=== PATIENT | female | born 1965 | race Caucasian/White ===

== ENCOUNTER 2017-09-18 16:18 | Emergency (ER) | payer OTHER ==
[~2017-09-18] VITALS: Ht 154.9 cm; Wt 68.5 kg
--- NOTE | 2017-09-18 18:38 | Diagnostic Imaging Report ---
PROCEDURE:X-RAY RIGHT KNEE, THREE OR MORE VIEWS COMPARISON:None. INDICATIONS:FELL HERD POP FINDINGS: Normal mineralization. No acute, displaced fracture or dislocation. No lytic or blastic lesions. Mild tricompartmental degenerative joint disease. Minimal suprapatellar effusion. CONCLUSION: Minimal suprapatellar effusion. No acute displaced fracture or dislocation. Omero Samaniego M.D. Dictated by: Omero Samaniego M.D. on 09/18/2017 at 18:42 Electronically approved by: Omero Samaniego M.D. on 09/18/2017 at 18:43
== END 2017-09-18 19:41 | disposition home or self-care (01) ==
LOC: ER 16:18
DX: S83.411A Sprain of medial collateral ligament of right knee, initial encounter (principal); X50.1XXA Overexertion from prolonged static or awkward postures, initial encounter; Y92.008 Other place in unspecified non-institutional (private) residence as the place of occurrence of the external cause; M79.642 Pain in left hand; M79.641 Pain in right hand; E11.9 Type 2 diabetes mellitus without complications
CPT/HCPCS: 99283

== ENCOUNTER 2017-12-05 10:06 | Emergency (ER) | payer OTHER ==
[~2017-12-05] VITALS: Ht 154.9 cm; Wt 68.5 kg
[2017-12-05] MEDS ORDERED: CEPHALEXIN500 MG PO (10:25)
[2017-12-05] MEDS ORDERED: MUPIROCIN22 GM TOP (10:25)
[2017-12-05] MEDS ORDERED: DIPHTH/TETANUS/ACEL. PERTUSSIS 0.5 ML SYR IM ONE (10:30)
== END 2017-12-05 10:44 | disposition home or self-care (01) ==
LOC: FSED 10:06
DX: L02.511 Cutaneous abscess of right hand (principal); E11.9 Type 2 diabetes mellitus without complications; E78.5 Hyperlipidemia, unspecified
CPT/HCPCS: 87071; 87186; 87205; 90471; 99283

== ENCOUNTER 2018-03-28 06:11 | Emergency (ER) | payer OTHER ==
[~2018-03-28] VITALS: Ht 154.9 cm; Wt 77.1 kg
[~2018-03-28 06:11] MED LIST: CEPHALEXIN500 MG PO; MUPIROCIN22 GM TOP
== END 2018-03-28 07:03 | disposition home or self-care (01) ==
LOC: FSED 06:11
DX: T22.111A Burn of first degree of right forearm, initial encounter (principal); X10.0XXA Contact with hot drinks, initial encounter; Y92.008 Other place in unspecified non-institutional (private) residence as the place of occurrence of the external cause; E11.9 Type 2 diabetes mellitus without complications
CPT/HCPCS: 99282

== ENCOUNTER 2018-04-04 11:43 | Emergency (ER) | payer OTHER ==
[~2018-04-04] VITALS: Ht 154.9 cm; Wt 77.1 kg
[2018-04-04] MEDS ORDERED: SODIUM CHLORIDE 0.9% 1000ML 1,000 ML IV SCH (12:15)
[2018-04-04] MEDS ORDERED: KETOROLAC TROMETHAMINE 30 MG/ML VIAL IV ONE (13:00)
--- NOTE | 2018-04-04 13:10 | Diagnostic Imaging Report ---
EXAM: CT of the abdomen and pelvis WITHOUT contrast HISTORY: Right-sided flank pain COMPARISON: Images from CT of the pelvis December 17, 2016 TECHNIQUE: The abdomen and pelvis were scanned utilizing a multidetector helical scanner. Coronal and sagittal reformats are available. PROTOCOL: Routine IV CONTRAST: None, which limits sensitivity and specificity of evaluation of the soft tissues and vascular structures. ORAL CONTRAST: None, which limits sensitivity and specificity of evaluation of the bowel. RADIATION DOSE: Total DLP: 734.99 mGy*cm Estimated effective dose: (DLP x 0.015 x size factor) Dose modulation, iterative reconstruction, and/or weight based adjustment of the mA/kV was utilized to reduce the radiation dose to as low as reasonably achievable. COMPLICATIONS: None FINDINGS: LOWER THORAX: Unremarkable. HEPATOBILIARY: No definite focal hepatic lesions. No biliary ductal dilatation. The gallbladder is unremarkable. SPLEEN: No splenomegaly. PANCREAS: No focal masses or ductal dilatation. Diffuse parenchymal atrophy. ADRENALS: No adrenal nodule. KIDNEYS/URETERS: No hydronephrosis, stones, or solid mass lesion identified. PELVIC ORGANS/BLADDER: There are no bladder is decompressed, which limits evaluation. PERITONEUM / RETROPERITONEUM: No free air or fluid. GI TRACT: On limited evaluation of the gastrointestinal tract, no dilation or wall thickening identified. The appendix appears normal. LYMPH NODES: No pathologically enlarged lymph nodes. VESSELS: Diffuse scattered atherosclerotic vascular calcifications. BONES: No aggressive osseous lesion or acute fracture. Multilevel degenerative changes of the axial skeleton, most notably at L5-S1. SOFT TISSUES: Nonspecific mild fat stranding within the ventral superficial adipose tissue overlying the right lower quadrant of the abdomen. Implanted electronic device(s) with radiopaque intra-spinal canal leads, appear stable. IMPRESSION: 1. No hydronephrosis or radiopaque urinary tract stone. 2. No acute CT abdomen abnormality, specifically no acute CT abnormality to explain the right sided flank pain. Signed by: Dr. Wild Clark D.O., M.M.M. on 04/04/2018 1:07 PM
--- NOTE | 2018-04-04 13:30 | NUR ---
Upon entry to the room for pain reassessment pt is on the bed with one foot on and one foot off the bed. Bent down reading registration paperwork. When questioned about pain levels the pt stated she is still having bad pain, and reached around and rubbed her back and began grunting.
[2018-04-04] MEDS ORDERED: ONDANSETRON HCL INJ 2 MG/ML VIAL IV STA (13:34)
[2018-04-04] MEDS ORDERED: MORPHINE SULFATE INJ 4 MG/ML INJ IV PRN (13:45)
[2018-04-04 14:21] VITALS: BP 120/69
== END 2018-04-04 14:15 | disposition home or self-care (01) ==
LOC: FSED 11:43
DX: M54.5 Low back pain (principal); G89.29 Other chronic pain
CPT/HCPCS: 74176; 81003; 99284; J2405; J7030

== ENCOUNTER 2018-05-10 10:54 | Emergency (ER) | payer OTHER ==
[~2018-05-10] VITALS: Ht 154.9 cm; Wt 77.1 kg
== END 2018-05-10 12:03 | disposition home or self-care (01) ==
LOC: FSED 10:54
DX: R50.9 Fever, unspecified (principal); R05 Cough; J20.9 Acute bronchitis, unspecified; E11.9 Type 2 diabetes mellitus without complications; E78.00 Pure hypercholesterolemia, unspecified; G90.50 Complex regional pain syndrome I, unspecified
CPT/HCPCS: 83518; 87400; 99283

== ENCOUNTER 2018-10-05 13:49 | Emergency (ER) | payer OTHER ==
[~2018-10-05] VITALS: Ht 160 cm; Wt 70.3 kg
[2018-10-05] MEDS ORDERED: MECLIZINE HCL 12.5 MG TAB PO STA (13:57)
[2018-10-05] MEDS ORDERED: MECLIZINE HCL 12.5 MG TAB ONE (14:18)
--- NOTE | 2018-10-05 14:40 | NUR ---
PTS BLOOD GLUCOSE 538 DR GRAY NOTIFIED ORDERS RECEIVED.
--- NOTE | 2018-10-05 14:43 | Diagnostic Imaging Report ---
History: Dizziness Comparison studies: None Technique: Axial images were obtained from the skull base to the vertex. Coronal and sagittal reconstructions obtained from the axial data. Dose modulation, iterative reconstruction, and/or weight based adjustment of the mA/kV was utilized to reduce the radiation dose to as low as reasonably achievable. Findings: Scalp/skull: No abnormalities. No fractures, blastic or lytic lesions. Extra-axial spaces: No masses. No fluid collections. Brain sulci: Appropriate for age. Ventricles: Normal in size and configuration. No hydrocephalus. Parenchyma: No abnormal densities. No masses, hemorrhage, acute or chronic cortical vascular insults. Sellar/suprasellar region: No abnormalities Craniocervical junction: Patent foramen magnum. No Chiari one malformation. IMPRESSION: No acute abnormalities . Signed by: DR José Valente M.D. on 10/05/2018 2:40 PM
[2018-10-05] MEDS ORDERED: SODIUM CHLORIDE 0.9% 1000 ML BAG IV STA (15:09)
--- NOTE | 2018-10-05 15:12 | Diagnostic Imaging Report ---
EXAMINATION: CXR 2 VIEW - HOPD INDICATION: Dizziness COMPARISON: None FINDINGS: TUBES and LINES: A electronic stimulator lead projects over the left thorax posteriorly. LUNGS: The lung volumes are normal. No focal consolidation or pulmonary edema. PLEURA: No pleural effusion or pneumothorax. HEART AND MEDIASTINUM: The cardiomediastinal silhouette is normal in size and contour. BONES AND SOFT TISSUES: No acute fracture or dislocation. UPPER ABDOMEN: No free air under the diaphragm. IMPRESSION: No focal pneumonia or pulmonary edema Signed by: Aric Hernandez MD on 10/05/2018 3:09 PM
[2018-10-05] MEDS ORDERED: SODIUM CHLORIDE 0.9% 1000ML 1,000 ML ONE (15:17)
--- NOTE | 2018-10-05 16:00 | NUR ---
PT STATED SHE CAN NOT BE ADMITTED INTO THE HOSPITAL SHE HAS A DISABLED SHE TAKES CARE OF, DR GRAY NOTIFIED, EXPLAINED TO PATIENT THE RISK OF LEAVING AGAINST MEDICAL ADVICE, PT ACKNOWLEDGES RISK, PT SIGNED AMA FORM, PLACED IN CHART,
[2018-10-05 16:01] VITALS: BP 117/72
== END 2018-10-05 16:02 | disposition left against medical advice (07) ==
LOC: FSED 13:49
DX: R42 Dizziness and giddiness (principal); E11.65 Type 2 diabetes mellitus with hyperglycemia; K52.9 Noninfective gastroenteritis and colitis, unspecified; E86.9 Volume depletion, unspecified; E86.1 Hypovolemia; J44.9 Chronic obstructive pulmonary disease, unspecified
CPT/HCPCS: 70450; 71046; 80048; 80076; 81003; 82553; 84484; 85025; 93005; 99284; J7030; J8597

== ENCOUNTER 2019-06-17 15:53 | Emergency (ER) | payer OTHER ==
[~2019-06-17] VITALS: Ht 162.6 cm; Wt 69.1 kg
--- OUTSIDE RECORDS SUMMARY | 2019-06-17 15:57 | XMS REPORT | Summary of Care ---
Author Author [facility] Organization [facility] Address Unknown Phone Unavailable Care Team Providers Care Exercise Equipment Repair Technician Name Role Phone Pcp, Patient Does Not Have A PCP Reason for Referral * (Routine) Referred By Contact Referred To Contact Status Reason Specialty Diagnoses / Procedures Robin Balbuena MD [address] [facility] [id number] [place] [address] [facility] [address] [place] [address] [address] [place] [address] New Request Orthopedic Diagnoses Surgery Acute pain of left knee P rocedures EMGNCV Reason for Visit * Reason Comments Follow-up left knee Encounter Details Care Team Description Date Type Department Robin Balbuena MD [address] [facility] [id number] [place], [place] [id number] Acute pain of left knee (Primary Dx); Meniscus degeneration, left; Lumbar radiculopathy 04/06/2019 Office Visit [facility] Orthopaedic Surgery- [address] [place] [address] Allergies Comments Active Allergy Reactions Severity Noted Date Confusion, couldn't stand up, and hives Zolpidem Other - See High 12/16/2017 comments Sulfa (Sulfonamide Rash 03/12/2016 Antibiotics) documented as of this encounter (statuses as of 04/06/2019) Medications End Date Status Medication Sig Dispensed Refills Start Date Active lisinopril 2.5 mg tablet lisinopril 0 2.5 mg tablet Active metFORMIN 500 mg tablet 2 (two) times 0 daily. Active traZODONE 100 mg tablet trazodone 100 0 mg tablet Active lovastatin 40 mg tablet lovastatin 40 0 mg tablet Active insulin glargine U-300 Toujeo 0 conc (TOUJEO SOLOSTAR SoloStar U-300 INSULIN) 300 U-300 Insulin unit/mL (1.5 mL) InPn 300 unit/mL (1.5 mL) subcutaneous pen 30 units every day by sub-q route. Active blood sugar diagnostic OneTouch 0 (ONETOUCH ULTRA BLUE TEST Ultra Blue STRIP MISC) Test Strip Active Blood-Glucose Meter OneTouch 0 (ONETOUCH ULTRA2) Kit Ultra2 kit Active valACYclovir 1 gram valacyclovir 0 tablet 1 gram tablet Active sumatriptan succ/naproxen Take by 0 sod (TREXIMET ORAL) mouth. Active aspirin 81 mg EC tablet Take 81 mg by 0 mouth daily. Active HYDROcodone-acetaminophen Take 1 tablet 28 tablet 0 5-325 mg by mouth 9 tabletIndications: Bucket every 6 (six) handle tear of lateral hours as meniscus of left knee, needed for unspecified whether old Pain (scale or current tear, initial 4-6) or Pain encounter (scale 7-10). Active gabapentin 300 mg Take 1 90 capsule 2 capsuleIndications: Acute capsule by 9 pain of left knee mouth 3 (three) times daily. Active IBUPROFEN 800 mg tablet TAKE ONE 30 tablet 2 TABLET BY 9 MOUTH EVERY 6 HOURS NEEDED FOR PAIN (SCALE 4-6) documented as of this encounter (statuses as of 04/06/2019) Active Problems Problem Noted Date Chronic pain of both knees 01/04/2019 History of arthroscopic knee surgery 01/04/2019 Obesity (BMI 30-39.9) 07/16/2018 Acute pain of left knee 03/31/2018 Overview: Added automatically from request for surgery [id number] Bucket handle tear of lateral meniscus of left knee, unspecified whether 10/21/2017 old or current tear, initial encounter Overview: Added automatically from request for surgery [id number] Arthritis of wrist, right 03/27/2016 documented as of this encounter (statuses as of 04/06/2019) Social History Date Tobacco Use Types Packs/Day Years Used Current Every Day Smoker Smokeless Tobacco: Never Used Comments: pt states she has cut down from pkpd to 4-5 per day Sex Assigned at Date Recorded Not on file Industry Job Start Date Occupation Not on file Not on file Not on file Travel End Travel History Travel Start No recent travel history available. documented as of this encounter Last Filed Vital Signs Reading Time Taken Comments Vital Sign - - Blood Pressure - - Pulse 36.1 C (97 F) 04/06/2019 5:46 PM SUBCONTRACT ADMINISTRATOR Temperature - - Respiratory Rate - - Oxygen Saturation - - Inhaled Oxygen Concentration 74.5 kg (164 lb 4.8 oz) 04/06/2019 5:46 PM SUBCONTRACT ADMINISTRATOR Weight 158.8 cm (5' 2.52") 04/06/2019 5:46 PM SUBCONTRACT ADMINISTRATOR Height 29.55 04/06/2019 5:46 PM SUBCONTRACT ADMINISTRATOR Body Mass Index documented in this encounter Progress Notes * Craig Stephens DO - 04/06/2019 2:40 PM SUBCONTRACT ADMINISTRATOR Craig Green, personally interviewed, examined and/or ordered the servic es described in this documentation, as scribed by Arpita and it is both accurat e and complete. Craig Stephens DO ONTRACT ADMINISTRATOR * Arpita Tello - 04/06/2019 2:40 PM SUBCONTRACT ADMINISTRATOR CHIEF COMPLAINT Abena Gill, a female, who presents for follow up of left knee. Procedure(s) Performed: Left knee arthroscopy, 07-16-18 Left knee medial femoral condyle / compartment chondroplasty, G3; diffuse Left knee patella / patello-femoral chondroplasty, G2,3; diffuse Left knee tricompartmental synovectomy / synovial fibrosis excision HISTORY OF PRESENT ILLNESS Interval History 04/06/2019: Patient presents for follow up of left knee. Pt repo rts unchanged status. She continues to endorses fall and was unable to get EMG. REVIEW OF SYSTEMS Patient denies constitutional symptoms, motor or sensory changes, cardiac and pu lmonary symptoms, gastrointestinal and urinary symptoms or difficulties, and rep orts no calf pain or swelling. No acute changes in respiration, neurologic statu s, or psychiatric behavior. No acute changes to skin, vision, or mental status. PHYSICAL EXAMINATIONS Constitutional: alert and oriented x 3; no apparent distress, normal temperature HEENT: PERRLA; moist mucous membranes, appropriate muscular symmetry Respiratory: normal, without labor, appropriate exchange volumes, no rales Cardiovascular: appropriate capillary refill of extremities, regular rate, rhyth m Abdomen: soft and non-tender, non-distressed, no abdominal extension Skin: skin color, texture and turgor are normal; no abnormal bruising, no rashe s noted Neurologic: cranial nerves grossly intact; sensation grossly intact Psychiatric : no abnormal affect, appropriate, able to cooperate to baseline lev el Lower Back/Hip/Ankle Exam- ROM: Flexion- normal Extension- normal Rotation- normal Tenderness: negative SI Joint Tenderness: negative Hardik's Test: negative Hip ROM: negative PNF / PNLS: negative Axial Compression R- negative L- negative G.T. Tenderness R- negative L- negative Gluteal Tenderness R- negative L- negative ABD's: negative I.T.: negative Ankle: Posterior Tib. Strength- normal Heel Cords 0- normal; 90- normal Knee Exam: Knee Alignment: normal Skin / Temperature: normal, well healed Effusion: Atrophy: negative Muscle Tone: normal ROM- Passive Extension: Flexion: ROM-Active Extension: as above Flexion: as above SLR: intact Instability (Hard / Soft end Points): General Ligament Laxity Anterior (Carleen's / Drawer): normal AL (Pivot-Jerk Test): negative Varus (0/30): normal/normal Valgus (0/30): normal/normal Posterior (Lach / Drawer): normal PL ( 30 / 90 ): negative ERRT: negative Recurvatum: negative Anterior tibial step-off: normal Quad Active test: normal Flexibility: Hamstrings ( Ant. Pop. Angle): normal Heel Cords: normal Meniscal Exam: Joint Line Tenderness Medial: Joint Line Tenderness Lateral: Nila ( Sympt / Mech ): negative Stress Test: negative Patello-Femoral: Apprehension: negative Translation 0 ( Medial- normal/ Lateral- normal) 30 (Medial- normal/ Lateral- normal) Tracking: normal Q> 0: normal 90: normal FAISAL: BAJA / JAZMÍN: VALG Fat Pad Tenderness: negative Plical Bands: negative Synovial Folds: negative Bone Palpation: Medial Femoral Condyle: negative Lateral Femoral Condyle: negative Fibular Head: negative Patella Femoral Articulation: negative medial/lateral Tibial Plateau: negative medial/lateral Epicondyles: negative medial/lateral Tibial Tubercle: negative Adduction Tibial Tubercle: negative Bursa/ Tendon Insertions/ Tendons: Patella Tenderness: negative Retinculum: negative medial/lateral VMO/VLO: negative Prepatella Bursa: negative Infrapatella Bursa: negative PES ANS: negative Popliteus: negative Biceps: negative Fibular Head: negative Semimembranosus: negative Gastrocnemius: negative medial/lateral Popliteal Space: negative Calf: negative Patella Femoral Crepitation: negative Tibial Femoral Crepitation: negative Neurovascular Status normal RADIOLOGY No new ASSESSMENT L Lumbar - sacral spine Lower extremity radiculopathy L5-S1 Spondylolisthesis Left knee arthroscopy, 07-16-18 Left knee medial femoral condyle / compartment chondroplasty, G3; diffuse Left knee patella / patello-femoral chondroplasty, G2,3; diffuse Left knee tricompartmental synovectomy / synovial fibrosis excision L Knee Medial meniscus tear L Knee MFC chondromalacia/chondral fracture Right knee arthroscopy, 10-23-17 Right knee medial femoral condyle / compartment chondroplasty, G3; extensive, fr agmentation Right knee patella / patello-femoral chondroplasty, G3; extensive Right knee tricompartmental synovectomy / synovial fibrosis excision Right knee lateral femoral condyle / compartment chondroplasty, G3; focal R Knee Locked knee R Knee Medial meniscus contusion versus tear R Knee Effusion R Knee Flexion contracture - (lack of extension) R Knee Degenerative joint disease - mild R Knee Stiffness (significant) H/o DM Resides: [place] Unable to have MRI: Spinal cord stimulator & pain pump, (h/o RSD R UE) Meds: ibuprofen, gabapentin Treatment: PT ([facility]), Age 55-60, T/c Injections, PT ([facility]), P ain management (HW3), L LE EMGs/NCVs, t/c R TKA PLAN/OPTIONS L LE EMGs/NCVs study / test (s) has been ordered for further evaluation/ assessm ent. Patient will follow-up in clinic for discussion with regard to study result s, and for monitoring of clinical condition/ status. Home physical therapy prescribed and the importance of compliance with rehabilit ation has been emphasized with the patient. It has been discussed that supervis ed and professionally directed therapy was necessary to optimize outcome and pre vent complications of condition, and that this should be continued by the patien t on a home exercise basis. Patient and family/companions present at clinic visit, instructed on appropriate sports and exercise activity modification involving no impact type or aggressiv e/strenuous lower extremity sports or exercises. Appropriate exercise regimen sh ould involve non-impact exercise such as swimming, stationary bicycle with high seat or recline, elliptical, or other desired exercises that do not involved david nding activity to the lower extremities. Jogging, running, jumping, cutting or a erobic dance activities should not be a part of optimal exercise program. A det jose discussion held regarding precautions and inappropriate utilization of inv olved extremity(ies) in order to optimize technician terminal and repeater patient outcome. Questions reviewed and answered. To consider surgical care pending status and desires at next clinical evaluation , following initiation / continuation of non-operative measures. R TKA Patient will return to clinic in 6 weeks for re-evaluation and discussion of agusto atment options. All findings and diagnosis were discussed with patient at time o f visit. Patient states they understand and are in agreement with the treatment plan at this time. Scribe's Attestation I, Arpita Tello , am scribing for, and in the presence of, Robin Balbuena MD and resident Dr. Stephens who performed the services described here-in. Arpita Tello, April 06, 2019, 6:06 PM ONTRACT ADMINISTRATOR documented in this encounter Plan of Treatment Care Team Description Date Type Specialty Robin Balbuena MD [address] [facility] [id number] [place] [address] [phone] 06/01/2019 Office Visit Orthopedic Surgery Order Schedule Name Type Priority Associated Diagnoses 1 Occurrences starting 04/06/2019 until 10/15/2019 EMGNCV EMG Routine Acute pain of left knee Health Maintenance Due Date Last Done Comments HEPATITIS C (HCV) SCREEN 1964 PNEUMOCOCCAL 0-64 YEARS 1970 COMBINED SERIES (1 of 1 - PPSV23) DTaP,Tdap,and Td Vaccines 05/18/1975 (1 - Tdap) PAP SMEAR 1985 Breast Cancer Screening 2004 (MAMMOGRAM) COLONOSCOPY 2014 Zoster Recombinant 2014 Vaccine (SHINGRIX) (1 of 2) INFLUENZA VACCINE (#1) 2018 documented as of this encounter Results Not on filedocumented in this encounter Visit Diagnoses Diagnosis Acute pain of left knee - Primary Meniscus degeneration, left Lumbar radiculopathy Thoracic or lumbosacral neuritis or radiculitis, unspecified documented in this encounter Insurance Type Payer Benefit Subscriber ID Effective Phone Address Plan / Dates Group Medicaid [employer] [place] xxxxxxxxx 2015-P PLAN - MANAGED MEDICAID [place] [address] [place] [address] ([place]) [place] [address] documented as of this encounter
--- OUTSIDE RECORDS SUMMARY | 2019-06-17 15:57 | XMS REPORT | Summary of Care ---
Author Author [facility] - Health Organization [facility] - Health Address Unknown Phone Unavailable Care Team Providers Care Heavy Equipment Technician Name Role Phone Pcp, Patient Does Not Have A PCP Reason for Referral * (Routine) Referred By Contact Referred To Contact Status Reason Specialty Diagnoses / Procedures Robin Balbuena MD [address] [address] New Request Pain Medicine Diagnoses Acute pain of left knee P rocedures REFERRAL PAIN CLINIC * (Routine) Referred By Contact Referred To Contact Status Reason Specialty Diagnoses / Procedures Robin Balbuena MD [address] [address] New Request Neurological Diagnoses Surgery Acute pain of left knee P rocedures CONSULT/REFERRAL NEUROSURGERY Reason for Visit * Reason Comments Knee Pain left Encounter Details Care Team Description Date Type Department Robin Balbuena MD [address] [address] Acute pain of left knee (Primary Dx) 06/01/2019 Office Visit [facility] Orthopaedic Surgery- [place] [id number] [facility] [address] [place] [phone] Allergies Comments Active Allergy Reactions Severity Noted Date Confusion, couldn't stand up, and hives Zolpidem Other - See High 12/16/2017 comments Sulfa (Sulfonamide Rash 03/12/2016 Antibiotics) documented as of this encounter (statuses as of 06/02/2019) Medications End Date Status Medication Sig Dispensed [...] 800 mg tablet TAKE ONE 30 tablet 1 TABLET BY 0 MOUTH EVERY 6 HOURS NEEDED FOR PAIN (SCALE 4-6) documented as of this encounter (statuses as of 06/02/2019) Active Problems Problem Noted Date Chronic pain of both knees 01/04/2019 History of arthroscopic knee surgery 01/04/2019 Obesity (BMI 30-39.9) 07/16/2018 Acute pain of left knee 03/31/2018 Overview: Added automatically from request for surgery [id number] Bucket handle tear of lateral meniscus of left knee, unspecified whether 10/21/2017 old or current tear, initial encounter Overview: Added automatically from request for surgery [id number] Arthritis of wrist, right 03/27/2016 documented as of this encounter (statuses as of 06/02/2019) Social History Date Tobacco Use Types Packs/Day [...] - - Blood Pressure - - Pulse 36.5 C (97.7 F) 06/01/2019 2:28 PM CDT Temperature - - Respiratory Rate - - Oxygen Saturation - - Inhaled Oxygen Concentration 74.3 kg (163 lb 11.2 oz) 06/01/2019 2:28 PM CDT Weight - - Height 29.45 04/06/2019 5:46 PM ASSURANCE MANAGER INSURANCE Body Mass Index documented in this encounter Progress Notes * Alonso Miner MD - 06/01/2019 1:40 PM CDT I, Dr. Dawson Miner, personally interviewed, examined, and/or ordered the servi venice described in this document, as scribed by Jenna Newell in my presence, and it is both accurate and complete. Dawson Miner MD 06/02/19 * Jenna Newell - 06/01/2019 1:40 PM CDT CHIEF COMPLAINT Abena Gill, a female, who presents for follow up of bilateral knee. Procedure(s) Performed: Left knee arthroscopy, 07-16-18 Left knee medial femoral condyle / compartment chondroplasty, G3; diffuse Left knee patella / patello-femoral chondroplasty, G2,3; diffuse Left knee tricompartmental synovectomy / synovial fibrosis excision HISTORY OF PRESENT ILLNESS Patient presents for follow up of bilateral knees. Her symptoms are stable. She reports some discomfort with weather changes. She also reports continued left lo wer extremity pain, describing lower back pain, that extends to the left hip, le ft posterior thigh pain, and down to the calf and lower leg. REVIEW OF SYSTEMS Patient denies constitutional symptoms, [...] Femoral Crepitation: negative Neurovascular Status normal RADIOLOGY EMG/NCV completed on 04/19/2019; reviewed ASSESSMENT L Lumbar - sacral spine Lower extremity radiculopathy (EMGs/NCVs 2019, chronic L 5-S1 Radiculopathy) L5-S1 Spondylolisthesis Left knee arthroscopy, 07-16-18 Left [...] R Knee Stiffness (significant) H/o DM Resides: [place] Unable to have MRI: Spinal cord stimulator & pain pump, (h/o RSD R UE) Meds: ibuprofen, gabapentin Treatment: PT ([facility]), Age 55-60, T/c Injections, PT (LC), P ain management (HW3), L LE EMGs/NCVs, t/c R TKA, Anesthesia Pain (ESIs), Neurosu rgery, BK OA Cabbage Salter braces PLAN/OPTIONS Patient referral for evaluation and definitive care to Neurosurgery and Anesthes ia Pain (ESIs). Patient agrees with referral for specific, specialist care, inst ructed to contact us if there is any delay or difficulties encountered in timely referral appointment and visit with specialist. Home physical therapy prescribed and the importance of compliance with rehabilit ation has been emphasized with the patient. It has been discussed that supervis ed and professionally directed therapy was necessary to optimize outcome and pre vent complications of condition, and that this should be continued by the dorothy cabrera on a home exercise basis. Patient and [...] inv olved extremity(ies) in order to optimize group home patient outcome. Questions reviewed and answered. Patient prescribed brace to be utilized during athletic, or strenuous activities / at all times /. Instructions , applications, and goals of bracing discussed and communicated to patient, companions, and family members accompanying dorothy cabrera to this clinic visit. Bilateral knee OA Cabbage Salter braces Patient will return to clinic in 12 weeks for re-evaluation and discussion of tr eatment options. All findings and diagnosis were discussed with patient at time of visit. Patient states they understand and are in agreement with the treatment plan at this time. Scribe's Attestation Jenna Green am scribing for and in the presence of Robin Balbuena MD and resident Dr. Miner. Robin Balbuena MD performed the services described he rein. Jenna Newell, June 01, 2019, 3:57 PM documented in this encounter Plan of Treatment Care Team Description Date Type Specialty Robin Balbuena MD [address] [facility] [id number] [place] [address] [phone] 08/31/2019 Office Visit Orthopedic Surgery Health Maintenance Due Date Last Done Comments HEPATITIS C (HCV) SCREEN 1964 PNEUMOCOCCAL 0-64 YEARS 1970 COMBINED SERIES (1 of 1 - PPSV23) DTaP,Tdap,and Td Vaccines 05/18/1975 (1 - Tdap) PAP SMEAR 1985 Breast Cancer Screening 2004 (MAMMOGRAM) COLONOSCOPY 2014 Zoster Recombinant 2014 Vaccine (SHINGRIX) (1 of 2) INFLUENZA VACCINE (#1) 2018 LUNG CANCER SCREEN: 05/18/2019 Recommended for age 55-80 with 30 + pack year history documented as of this encounter Results Not on filedocumented in this encounter Visit Diagnoses Diagnosis Acute pain of left knee - Primary documented in this encounter Insurance Type Payer Benefit Subscriber ID Effective Phone Address Plan / Dates Group Medicaid [employer] [place] [employer] xxxxxxxxx 2019-P P O [facility] resent [id number] [place] [address] [place] [address] (Home) [place] [address] documented as of this encounter
--- OUTSIDE RECORDS SUMMARY | 2019-06-17 15:57 | XMS REPORT | Summary of Care ---
Author Author [facility] - Health Organization [facility] - Health Address Unknown Phone Unavailable Care Team Providers Care Industrial Management Teacher Name Role Phone Pcp, Patient Does Not Have A PCP Encounter Details Care Team Description Date Type Department Doctor Unassigned, [place] 301 [place] [address] 06/01/2019 Orders Only [facility] 301 [place] [address] Allergies Comments Active Allergy Reactions Severity Noted Date Confusion, couldn't stand up, and hives Zolpidem Other - See High 12/16/2017 comments Sulfa (Sulfonamide Rash 03/12/2016 Antibiotics) documented as of this encounter (statuses as of 06/08/2019) Medications End Date Status Medication Sig Dispensed [...] as of this encounter (statuses as of 06/08/2019) Active Problems Problem Noted Date Chronic pain of both knees 01/04/2019 History of arthroscopic knee surgery 01/04/2019 Obesity (BMI 30-39.9) 07/16/2018 Acute pain of left knee 03/31/2018 Overview: Added automatically from request for surgery [id number] Bucket handle tear of lateral meniscus of left knee, unspecified whether 10/21/2017 old or current tear, initial encounter Overview: Added automatically from request for surgery [id number] Arthritis of wrist, right 03/27/2016 documented as of this encounter (statuses as of 06/08/2019) Social History Date Tobacco Use Types Packs/Day [...] of this encounter Last Filed Vital Signs Not on filedocumented in this encounter Plan of Treatment Care Team Description Date Type Specialty Robin Balbuena MD [id number] [place], [place] [address] 08/31/2019 Office Visit Orthopedic Surgery Health Maintenance [...] year history documented as of this encounter Procedures Comments Procedure Name Priority Date/Time Associated Diagnosis DME/SUPPLY JUSTIFICATION Routine 06/01/2019 12:01 AM CDT documented in this encounter Results Not on filedocumented in this encounter Insurance Type Payer Benefit Subscriber ID Effective Phone Address Plan / Dates Group Medicaid [employer] [place] [employer] xxxxxxxxx 2019-P P O [facility] resent [address] [place] [address] documented as of this encounter
--- OUTSIDE RECORDS SUMMARY | 2019-06-17 15:57 | XMS REPORT | Summary of Care ---
Author Author [facility] - Health Organization [facility] - Health Address Unknown Phone Unavailable Care Team Providers Care Traffic And Transport Planner Name Role Phone Pcp, Patient Does Not Have A PCP Reason for Referral * (Routine) Referred By Contact Referred To Contact Status Reason Specialty Diagnoses / Procedures Robin Balbuena MD 301 [facility] [id number] [place] [address] [facility] Ortho Faculty [address] [place] [address] [address] [place] [address] New Request Orthopedic Diagnoses Surgery Acute pain of left knee P rocedures EMGNCV Reason for Visit * Reason Comments Follow-up left knee Encounter Details Care Team Description Date Type Department Robin Balbuena MD 301 [facility] [id number] [place], [place] [id number] Acute pain of left knee (Primary Dx); Meniscus degeneration, left; Lumbar radiculopathy 04/06/2019 Office Visit [facility] Orthopaedic Surgery- [address] [place] [address] Allergies Comments Active Allergy Reactions [...] Overview: Added automatically from request for surgery [id number] Bucket handle tear of lateral meniscus of left knee, unspecified whether 10/21/2017 old or current tear, initial encounter Overview: Added automatically from request for surgery [id number] Arthritis of wrist, right 03/27/2016 documented as [...] 36.1 C (97 F) 04/06/2019 5:46 PM PLATE AND FRAME FILTER OPERATOR Temperature - - Respiratory Rate - - Oxygen Saturation - - Inhaled Oxygen Concentration 74.5 kg (164 lb 4.8 oz) 04/06/2019 5:46 PM PLATE AND FRAME FILTER OPERATOR Weight 158.8 cm (5' 2.52") 04/06/2019 5:46 PM PLATE AND FRAME FILTER OPERATOR Height 29.55 04/06/2019 5:46 PM PLATE AND FRAME FILTER OPERATOR Body Mass Index documented in this encounter Progress Notes * Craig Stephens DO - 04/06/2019 2:40 PM PLATE AND FRAME FILTER OPERATOR Craig Green, personally interviewed, examined and/or ordered the servic es described in this documentation, as scribed by Arpita and it is both accurat e and complete. Craig Stephens DO E AND FRAME FILTER OPERATOR * Arpita Tello - 04/06/2019 2:40 PM PLATE AND FRAME FILTER OPERATOR CHIEF COMPLAINT Abena Gill, a female, who [...] R Knee Stiffness (significant) H/o DM Resides: [place] Unable to have MRI: Spinal cord stimulator & pain pump, (h/o RSD R UE) Meds: ibuprofen, gabapentin Treatment: PT ([facility]), Age 55-60, T/c Injections, PT ([facility]), P [...] inv olved extremity(ies) in order to optimize adjunct faculty for medical terminology patient outcome. Questions reviewed and answered. To [...] Arpita Tello, April 06, 2019, 6:06 PM E AND FRAME FILTER OPERATOR documented in this encounter Plan of Treatment Care Team Description Date Type Specialty Robin Balbuena MD [address] [facility] [id number] [place] [address] [phone] 06/01/2019 Office Visit Orthopedic Surgery Order Schedule [...] - MANAGED MEDICAID STAR PLUS resent [address] [place] [address] ([place]ryan) [place] [address] documented as of this encounter
--- OUTSIDE RECORDS SUMMARY | 2019-06-17 15:57 | XMS REPORT | Summary of Care ---
Author Author [facility] - Health Organization [facility] - Health Address Unknown Phone Unavailable Care Team Providers Care Vinyl Installer Name Role Phone Pcp, Patient Does Not Have A PCP Reason for Referral * (Routine) Referred By Contact Referred To Contact Status Reason Specialty Diagnoses / Procedures Robin Balbuena MD [address] [address] New Request Pain Medicine Diagnoses Acute pain of left knee P rocedures REFERRAL PAIN CLINIC * (Routine) Referred By Contact Referred To Contact Status Reason Specialty Diagnoses / Procedures Robin Balbuena MD [address] [address] New Request Neurological Diagnoses Surgery Acute pain of left knee P rocedures CONSULT/REFERRAL NEUROSURGERY Reason for Visit * Reason Comments Knee Pain left Encounter Details Care Team Description Date Type Department Robin Balbuena MD [address] [address] Acute pain of left knee (Primary Dx) 06/01/2019 Office Visit [facility] Orthopaedic Surgery- [place] [id number] [facility] [address] [place] [phone] Allergies Comments Active Allergy Reactions Severity Noted [...] Overview: Added automatically from request for surgery [id number] Bucket handle tear of lateral meniscus of left knee, unspecified whether 10/21/2017 old or current tear, initial encounter Overview: Added automatically from request for surgery [id number] Arthritis of wrist, right 03/27/2016 documented as [...] - - Height 29.45 04/06/2019 5:46 PM COUNTERINTELLIGENCE AGENT Body Mass Index documented in this encounter [...] R Knee Stiffness (significant) H/o DM Resides: [place] Unable to have MRI: Spinal cord stimulator & pain pump, (h/o RSD R UE) Meds: ibuprofen, gabapentin Treatment: PT ([facility]), Age 55-60, T/c Injections, PT ([facility]), P ain management (HW3), L LE EMGs/NCVs, t/c R TKA, Anesthesia Pain (ESIs), Neurosu rgery, BK OA Manufacturing Specialist braces PLAN/OPTIONS Patient referral for evaluation and [...] inv olved extremity(ies) in order to optimize alf patient outcome. Questions reviewed and answered. Patient prescribed brace to be utilized during athletic, or strenuous activities / at all times /. Instructions , applications, and goals of bracing discussed and communicated to patient, companions, and family members accompanying dorothy cabrera to this clinic visit. Bilateral knee OA Manufacturing Specialist braces Patient will return to clinic in [...] Type Specialty Robin Balbuena MD 301 [address] [facility] [id number] [place] [address] [phone] 08/31/2019 Office Visit Orthopedic Surgery Health Maintenance [...] [place] [employer] xxxxxxxxx 2019-P P O [facility] resent [address] [place] [address] [place] [address] (Home) [place] [address] documented as of this encounter
--- OUTSIDE RECORDS SUMMARY | 2019-06-17 15:57 | XMS REPORT | Summary of Care ---
Author Author [facility] - Health Organization [facility] - Health Address Unknown Phone Unavailable Care Team Providers Care Fnps Name Role Phone Pcp, Patient Does Not Have A PCP Reason for Referral * (Routine) Referred By Contact Referred To Contact Status Reason Specialty Diagnoses / Procedures Robin Balbuena MD 301 [facility] [id number] [place] [address] [facility] Ortho Faculty [address] [place] [address] [address] [place] [address] New Request Orthopedic Diagnoses Surgery Acute pain of left knee M25.562 (ICD-10-CM) M54.9 [id number] P rocedures EMGNCV Reason for Visit * Reason Comments Follow-up left knee Encounter Details Care Team Description Date Type Department Robin Balbuena MD 301 [facility] [id number] [place] [address] Acute pain of left knee (Primary Dx); Meniscus degeneration, left; Lumbar radiculopathy 04/06/2019 Office Visit [facility] Orthopaedic Surgery- [facility] [address] [place] [address] [address] [place] [address] Allergies Comments Active Allergy Reactions Severity Noted Date Confusion, couldn't stand up, and hives Zolpidem Other - See High 12/16/2017 comments Sulfa (Sulfonamide Rash 03/12/2016 Antibiotics) documented as of this encounter (statuses as of 04/08/2019) Medications End Date Status Medication Sig Dispensed [...] as of this encounter (statuses as of 04/08/2019) Active Problems Problem Noted Date Chronic pain of both knees 01/04/2019 History of arthroscopic knee surgery 01/04/2019 Obesity (BMI 30-39.9) 07/16/2018 Acute pain of left knee 03/31/2018 Overview: Added automatically from request for surgery [id number] Bucket handle tear of lateral meniscus of left knee, unspecified whether 10/21/2017 old or current tear, initial encounter Overview: Added automatically from request for surgery [id number] Arthritis of wrist, right 03/27/2016 documented as of this encounter (statuses as of 04/08/2019) Social History Date Tobacco Use Types Packs/Day [...] 36.1 C (97 F) 04/06/2019 5:46 PM VICE PRESIDENT QUALITY IMPROVEMENT Temperature - - Respiratory Rate - - Oxygen Saturation - - Inhaled Oxygen Concentration 74.5 kg (164 lb 4.8 oz) 04/06/2019 5:46 PM VICE PRESIDENT QUALITY IMPROVEMENT Weight 158.8 cm (5' 2.52") 04/06/2019 5:46 PM VICE PRESIDENT QUALITY IMPROVEMENT Height 29.55 04/06/2019 5:46 PM VICE PRESIDENT QUALITY IMPROVEMENT Body Mass Index documented in this encounter Progress Notes * Craig Stephens DO - 04/06/2019 2:40 PM VICE PRESIDENT QUALITY IMPROVEMENT ICraig, personally interviewed, examined and/or ordered the servic es described in this documentation, as scribed by Arpita and it is both accurat e and complete. Craig Stephens DO PRESIDENT QUALITY IMPROVEMENT * Arpita Tello - 04/06/2019 2:40 PM VICE PRESIDENT QUALITY IMPROVEMENT CHIEF COMPLAINT Abena Gill, a female, who [...] R Knee Stiffness (significant) H/o DM Resides: [place] Unable to have MRI: Spinal cord stimulator & pain pump, (h/o RSD R UE) Meds: ibuprofen, gabapentin Treatment: PT ([facility]), Age 55-60, T/c Injections, PT ([facility]), [...] inv olved extremity(ies) in order to optimize long-term patient outcome. Questions reviewed and answered. To [...] Arpita Tello, April 06, 2019, 6:06 PM PRESIDENT QUALITY IMPROVEMENT documented in this encounter Plan of Treatment Care Team Description Date Type Specialty Chelly Hicks MD 301 [place] [address] 04/19/2019 Appointment Electroneurodiagnostic Robin Balbuena MD 301 [facility] [id number] [place] [address] [phone] 06/01/2019 Office Visit Orthopedic Surgery Order Schedule [...] PLAN - MANAGED MEDICAID STAR PLUS resent ([place]) [place] [address] documented as of this encounter
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
[2019-06-17] MEDS ORDERED: CLINDAMYCIN HC150 MG PO (16:31)
[2019-06-17] MEDS ORDERED: ULTRAM50 MG PO ×2 (16:31→17:06)
[2019-06-17] MEDS ORDERED: SODIUM CHLORIDE 0.9% 1000ML 1,000 ML IV SCH (16:45)
[2019-06-17] MEDS ORDERED: INSULIN REGULAR, HUMAN 100 UNIT/1 ML 3ML VIAL IV ONE (16:45)
--- NOTE | 2019-06-17 16:47 | Diagnostic Imaging Report ---
EXAM: FOOT 3 VIEW RT - [facility]OPD DATE: 06/17/2019 12:00 AM INDICATION: Right foot pain COMPARISON: None FINDINGS: There is soft tissue swelling and subcutaneous emphysema identified within the distal aspect of the third digit of the right foot. The cortical margins of the distal aspect of the third distal phalanx indistinct which may reflect osseous involvement/osteomyelitis. The remaining osseous structures demonstrate no evidence for acute fracture or destructive process. There are postsurgical changes of the calcaneus no radiopaque foreign bodies appreciated. IMPRESSION: Soft tissue swelling and subcutaneous emphysema noted within the third digit concerning for an infectious process with likely osseous involvement of third distal phalanx. Further evaluation could be performed with dedicated MRI if clinically indicated. Signed by: Dr. Murtaza Waddell MD on 06/17/2019 4:44 PM
[2019-06-17] MEDS ORDERED: VANCOMYCIN 1GM/NS 250 ML 250 ML IV ONE (17:00)
[2019-06-17] MEDS ORDERED: VANCOMYCIN 1GM/NS 250 ML 250 ML ONE (17:40)
[2019-06-17] MEDS ORDERED: HYDROCODONE/APAP 5MG-325MG TAB ONE (17:50)
[2019-06-17] MEDS ORDERED: HYDROCODONE/APAP 5MG-325MG TAB PO ONE (18:00)
--- NOTE | 2019-06-17 19:00 | NUR ---
report to CHAUNCEY Burger
--- NOTE | 2019-06-17 19:20 | NUR ---
IV COMPLETE. DC'D SL WITHOUT DIFF. NO REDNESS/SWELLING/BLEEDING TO SITE. CATH. INTACT. PT TOLERATED WELL
[2019-06-17 19:23] VITALS: BP 125/69
== END 2019-06-17 19:23 | disposition home or self-care (01) ==
LOC: FSED 15:53
DX: M79.671 Pain in right foot (principal); M79.661 Pain in right lower leg; L03.031 Cellulitis of right toe; E11.65 Type 2 diabetes mellitus with hyperglycemia; I10 Essential (primary) hypertension; F17.210 Nicotine dependence, cigarettes, uncomplicated
CPT/HCPCS: 36415; 73630; 80048; 82948; 85025; 96374; 99283; J3370; J7030; J1817

== ENCOUNTER → 2021-03-12 | Outpatient (CLI) | payer OTHER ==
[~2021-03-12] MED LIST changes: +CLINDAMYCIN HC150 MG PO; +ULTRAM50 MG PO
== END ==
LOC: MAMMO 12:22
PROVIDERS: ATTEND Family Medicine
DX: Z12.31 Encounter for screening mammogram for malignant neoplasm of breast (principal); Z13.820 Encounter for screening for osteoporosis
CPT/HCPCS: 77067; 77080

== ENCOUNTER 2021-10-20 07:57 | Emergency (ER) | payer MEDICARE, OTHER ==
[~2021-10-20] VITALS: Ht 162.6 cm; Wt 79.4 kg
[2021-10-20] MEDS ORDERED: SODIUM CHLORIDE 0.9% 1000ML 1,000 ML IV STA (08:18)
[2021-10-20] MEDS ORDERED: ONDANSETRON HCL INJ 2MG/ML 2ML 2 MG/ML VIAL IV ONE (08:30)
[2021-10-20] MEDS ORDERED: KETOROLAC TROMETHAMINE 30 MG/ML VIAL IV ONE (08:30)
[2021-10-20] MEDS ORDERED: FAMOTIDINE 20 MG/2 ML VIAL IV ONE ×2 (08:30→08:40)
[2021-10-20] MEDS ORDERED: CEFTRIAXONE 1 GM VIAL IV ONE (08:30)
[2021-10-20] MEDS ORDERED: IBUPROFEN200 MG PO (08:34)
[2021-10-20] MEDS ORDERED: ZANAFLEX4 MG PO (08:34)
[2021-10-20] MEDS ORDERED: CEFDINIR300 MG PO (08:34)
[2021-10-20] MEDS ORDERED: SODIUM CHLORIDE 0.9% 1000ML 1,000 ML ONE (08:40)
[2021-10-20] MEDS ORDERED: ONDANSETRON HCL INJ 2MG/ML 2ML 2 MG/ML VIAL ONE (08:54)
[2021-10-20] MEDS ORDERED: ALTOPREV40 MG PO (10:54)
[2021-10-20] MEDS ORDERED: OXYBUTYNIN CHLOR5 MG PO (10:54)
[2021-10-20] MEDS ORDERED: MONTELUKAST SOD10 MG PO (10:54)
[2021-10-20] MEDS ORDERED: EXCEDRIN MIGRA1 EAC3 (10:54)
[2021-10-20] MEDS ORDERED: METFORMIN HCL500 M1 PO (10:54)
[2021-10-20] MEDS ORDERED: OZEMPIC0.25 MG/0. SC (10:54)
[2021-10-20] MEDS ORDERED: ASPIRIN EC81 MG PO (10:54)
[2021-10-20] MEDS ORDERED: MELOXICAM7.5 MG PO (10:54)
[2021-10-20] MEDS ORDERED: GLYCOPYRRO0.2 MG/1 M PO (10:54)
[2021-10-20] MEDS ORDERED: LYUMJEV100 UNIT/1 SQ (10:54)
[2021-10-20] MEDS ORDERED: TRESIBA100 UNIT/1 SQ (10:54)
== END 2021-10-20 09:40 | disposition home or self-care (01) ==
LOC: FSED 08:05
DX: M54.50 Low back pain, unspecified (principal); N39.0 Urinary tract infection, site not specified; R11.2 Nausea with vomiting, unspecified; E11.65 Type 2 diabetes mellitus with hyperglycemia; G90.50 Complex regional pain syndrome I, unspecified; F17.210 Nicotine dependence, cigarettes, uncomplicated
CPT/HCPCS: 80053; 81003; 85025; 96374; 96375; 99283; J0696; J1885; J2405; J7030

== ENCOUNTER 2021-11-02 17:22 | Emergency (ER) | payer MEDICARE, OTHER ==
[~2021-11-02] VITALS: Ht 162.6 cm; Wt 79.4 kg
[~2021-11-02 17:22] MED LIST changes: +ALTOPREV40 MG PO; +ASPIRIN EC81 MG PO; +CEFDINIR300 MG PO; +EXCEDRIN MIGRA1 EAC3; +GLYCOPYRRO0.2 MG/1 M PO; +IBUPROFEN200 MG PO; +LYUMJEV100 UNIT/1 SQ; +MELOXICAM7.5 MG PO; +METFORMIN HCL500 M1 PO; +MONTELUKAST SOD10 MG PO; +OXYBUTYNIN CHLOR5 MG PO; +OZEMPIC0.25 MG/0. SC; +TRESIBA100 UNIT/1 SQ; +ZANAFLEX4 MG PO
[2021-11-02] MEDS ORDERED: PANTOPRAZOLE SO40 MG PO (18:38)
[2021-11-02] MEDS ORDERED: FAMOTIDINE40 MG PO (18:39)
[2021-11-02] MEDS ORDERED: SUCRALFATE1 G/10 ML PO (18:43)
== END 2021-11-02 18:58 | disposition home or self-care (01) ==
LOC: FSED 17:34
DX: K20.90 Esophagitis, unspecified without bleeding (principal); R13.10 Dysphagia, unspecified; G90.50 Complex regional pain syndrome I, unspecified; I10 Essential (primary) hypertension; E11.9 Type 2 diabetes mellitus without complications; E78.5 Hyperlipidemia, unspecified; F17.210 Nicotine dependence, cigarettes, uncomplicated
CPT/HCPCS: 70360; 99283

== ENCOUNTER 2022-04-10 21:36 | Emergency (ER) | payer MEDICARE, OTHER ==
[~2022-04-10] VITALS: Ht 162.6 cm; Wt 77.1 kg
[~2022-04-10 21:36] MED LIST changes: +ATORVASTATIN CA20 MG PO; +CREON DR 12,001 EACH PO; +FAMOTIDINE40 MG PO; +HUMALOG; +LISINOPRIL2.5 MG PO; +NEURONTIN100 MG PO; +PANTOPRAZOLE SO40 MG PO; +SUCRALFATE1 G/10 ML PO; +SUMATRIPTAN SUC25 MG PO
[2022-04-10] MEDS ORDERED: DEXAMETHASONE SOD PHOS 10 MG/1 ML VIAL IM ONE (22:00)
[2022-04-10] MEDS ORDERED: BENZONATATE200 MG PO ×2 (22:02→22:10)
[2022-04-10] MEDS ORDERED: VENTOLIN HFA18 GM INH ×2 (22:02→22:10)
[2022-04-10] MEDS ORDERED: NASACORT16.9 ML ×2 (22:02→22:10)
[2022-04-10] MEDS ORDERED: CEFDINIR300 MG PO ×2 (22:02→22:10)
[2022-04-10] MEDS ORDERED: DEXAMETHASONE SOD PHOS INJ 4 MG/ML SDV ONE (22:13)
== END 2022-04-10 22:45 | disposition home or self-care (01) ==
LOC: FSED 21:51
DX: R05.9 Cough, unspecified (principal); J06.9 Acute upper respiratory infection, unspecified; J40 Bronchitis, not specified as acute or chronic; J01.00 Acute maxillary sinusitis, unspecified; F17.210 Nicotine dependence, cigarettes, uncomplicated
CPT/HCPCS: 36415; 82948; 99282; J1100

== ENCOUNTER 2023-09-29 16:59 | Emergency (ER) | payer MEDICARE, OTHER ==
[~2023-09-29] VITALS: Ht 160 cm; Wt 77.1 kg
[~2023-09-29 16:59] MED LIST changes: +BENZONATATE200 MG PO; +NASACORT16.9 ML; +VENTOLIN HFA18 GM INH
[2023-09-29] MEDS: CEPHALEXIN MONOHYDRATE 250 MG CAP PO ONE (17:33)
[2023-09-29] MEDS: NEOMYCIN/POLYMYX/BACITR OINT 0.9 GM PKT TOP ONE (17:33)
[2023-09-29] MEDS ORDERED: CEPHALEXIN500 MG PO (18:41)
[2023-09-29] MEDS ORDERED: MUPIROCIN22 GM TOP (18:43)
[2023-09-29] MEDS: KETOROLAC TROMETHAMINE 30 MG/ML VIAL IM STA (18:51)
[2023-09-29 19:11] VITALS: PULSE 80; RESP 16; TEMP 98.8; O2SAT 95
== END 2023-09-29 19:11 | disposition home or self-care (01) ==
LOC: FSED 17:05
DX: L03.116 Cellulitis of left lower limb (principal); T14.8XXA Other injury of unspecified body region, initial encounter; W19.XXXA Unspecified fall, initial encounter; I10 Essential (primary) hypertension; E78.5 Hyperlipidemia, unspecified; E11.51 Type 2 diabetes mellitus with diabetic peripheral angiopathy without gangrene; Z79.4 Long term (current) use of insulin; Z79.84 Long term (current) use of oral hypoglycemic drugs; G90.50 Complex regional pain syndrome I, unspecified; K21.9 Gastro-esophageal reflux disease without esophagitis; F31.9 Bipolar disorder, unspecified; Z96.82 Presence of neurostimulator; Z79.899 Other long term (current) drug therapy; Z79.82 Long term (current) use of aspirin
CPT/HCPCS: 73590; 99283; J1885

== ENCOUNTER 2023-10-20 09:59 | Emergency (ER) | payer MEDICARE ==
[~2023-10-20] VITALS: Ht 160 cm; Wt 77.7 kg
[2023-10-20 10:04] VITALS: PULSE 102; RESP 18; TEMP 98.4; O2SAT 96
== END 2023-10-20 11:22 | disposition home or self-care (01) ==
LOC: FSED 10:03
DX: S40.012A Contusion of left shoulder, initial encounter (principal); W01.0XXA Fall on same level from slipping, tripping and stumbling without subsequent striking against object, initial encounter; Y93.01 Activity, walking, marching and hiking; Y92.89 Other specified places as the place of occurrence of the external cause; I10 Essential (primary) hypertension; E11.9 Type 2 diabetes mellitus without complications; J44.9 Chronic obstructive pulmonary disease, unspecified; E78.5 Hyperlipidemia, unspecified; J45.909 Unspecified asthma, uncomplicated; K21.9 Gastro-esophageal reflux disease without esophagitis; F41.9 Anxiety disorder, unspecified; F32.A Depression, unspecified; M54.9 Dorsalgia, unspecified; G89.29 Other chronic pain; F17.210 Nicotine dependence, cigarettes, uncomplicated
CPT/HCPCS: 99283

== ENCOUNTER 2023-12-20 22:23 | Emergency (ER) | payer MEDICARE, OTHER ==
[~2023-12-20] VITALS: Ht 160 cm; Wt 77.6 kg
[2023-12-20 22:33] VITALS: PULSE 87; RESP 22; TEMP 98.2; O2SAT 96
[2023-12-20 22:56] LABS: BASOPHILS # (AUTO) 0.1 (0.0-0.1); BASOPHILS % 0.7 % (0.0-1.0); EOSINOPHILS # (AUTO) 0.3 (0.0-0.4); EOSINOPHILS % 3.3 % (0.0-6.0); HEMATOCRIT 47.2 % (34.2-44.1); HEMOGLOBIN 14.9 g/dL (12.0-16.0); LYMPHOCYTES # (AUTO) 2.3 (1.0-3.2); LYMPHOCYTES % 28.5 % (18.0-39.1); MEAN CORPUSCULAR HEMOGLOBIN 28.9 pg (28-32); MEAN CORPUSCULAR HGB CONC 31.6 g/dL (31-35); MEAN CORPUSCULAR VOLUME 91.7 fL (81-99); MONOCYTES # (AUTO) 0.6 (0.2-0.8); MONOCYTES % 6.9 % (4.4-11.3); NEUTROPHILS # (AUTO) 4.9 (2.1-6.9); NEUTROPHILS % 60.4 % (38.7-80.0); PLATELET COUNT 167 x10e3/uL (140-360); RED BLOOD COUNT 5.15 x10e6/uL (3.6-5.1); RED CELL DISTRIBUTION WIDTH 13.5 % (11.7-14.4); WHITE BLOOD COUNT 8.15 x10e3/uL (4.8-10.8)
[2023-12-20 23:18] LABS: ALBUMIN 3.9 g/dL (3.5-5.0); ALBUMIN/GLOBULIN RATIO 1.1 (0.8-2.0); ANION GAP 15.5 mmol/L (8-16); BILIRUBIN,TOTAL 0.3 mg/dL (0.2-1.2); CALCIUM 9.7 mg/dL (8.4-10.2); CREATININE, SERUM 0.99 mg/dL (0.57-1.11); POTASSIUM 4.5 mmol/L (3.5-5.1); TOTAL PROTEIN 7.4 g/dL (6.5-8.1)
[2023-12-20 23:23] LABS: TROPONIN I 0.006 ng/mL (0-0.300)
[2023-12-21] MEDS: KETOROLAC TROMETHAMINE 30 MG/ML VIAL IV STA (01:38)
[2023-12-21] MEDS: DIAZEPAM INJ 5 MG/ML 2 ML IV STA (01:39)
[2023-12-21] MEDS ORDERED: IOPAMIDOL 370 MG/ML 100 ML INFUS..BTL INJ ONE (05:36)
== END 2023-12-21 01:50 | disposition home or self-care (01) ==
LOC: ER 22:30
DX: R06.00 Dyspnea, unspecified (principal); M62.830 Muscle spasm of back; M54.9 Dorsalgia, unspecified; G89.29 Other chronic pain; I10 Essential (primary) hypertension; E11.65 Type 2 diabetes mellitus with hyperglycemia; J44.9 Chronic obstructive pulmonary disease, unspecified; E78.5 Hyperlipidemia, unspecified; I73.9 Peripheral vascular disease, unspecified; K21.9 Gastro-esophageal reflux disease without esophagitis; F41.9 Anxiety disorder, unspecified
CPT/HCPCS: 36415; 71260; 74177; 80053; 82550; 83690; 83880; 84484; 85025; 99283; Q9967

== ENCOUNTER 2024-04-04 10:53 | Emergency (ER) | payer MEDICARE ==
[~2024-04-04] VITALS: Ht 160 cm; Wt 73.5 kg
[2024-04-04] MEDS ORDERED: CEFTRIAXONE 1 GM VIAL IM ONE (11:15)
[2024-04-04] MEDS ORDERED: HYDROMORPHONE PO (11:26)
[2024-04-04] MEDS ORDERED: HYDROCODONE-AC473 M1 (11:26)
[2024-04-04] MEDS ORDERED: JARDIANCE25 MG (11:26)
[2024-04-04] MEDS ORDERED: CEFUROXIME250 MG PO (11:26)
[2024-04-04] MEDS ORDERED: Doxycycline IV 100 MG in SODIUM CHLORIDE 0.9% 100 ML IV SCH (12:45)
[2024-04-04] MEDS ORDERED: SODIUM CHLORIDE 0.9% 1000ML 1,000 ML IV SCH (12:45)
[2024-04-04 13:06] VITALS: PULSE 84; RESP 18; TEMP 98.4; O2SAT 94
[2024-04-04] MEDS ORDERED: DOXYCYCLINE HY100 MG PO (13:12)
== END 2024-04-04 13:19 | disposition home or self-care (01) ==
LOC: FSED 11:02
DX: L03.116 Cellulitis of left lower limb (principal); I10 Essential (primary) hypertension; E11.65 Type 2 diabetes mellitus with hyperglycemia; J44.9 Chronic obstructive pulmonary disease, unspecified; E78.5 Hyperlipidemia, unspecified; M54.9 Dorsalgia, unspecified; G89.29 Other chronic pain; K21.9 Gastro-esophageal reflux disease without esophagitis; F41.9 Anxiety disorder, unspecified; F32.A Depression, unspecified
CPT/HCPCS: 73610; 80053; 81003; 85025; 87040; 99284; J0696

== ENCOUNTER 2024-11-13 23:44 | Emergency (ER) | payer MEDICARE ==
[~2024-11-13] VITALS: Ht 160 cm; Wt 74.8 kg
[~2024-11-13 23:44] MED LIST changes: +CEFUROXIME250 MG PO; +DOXYCYCLINE HY100 MG PO; +HYDROCODONE-AC473 M1; +HYDROMORPHONE PO; +JARDIANCE25 MG
[2024-11-14 00:17] VITALS: PULSE 87; RESP 18; TEMP 98.5
[2024-11-14] MEDS ORDERED: PROBIOTIC & AC1 EACH PO (00:57)
[2024-11-14] MEDS ORDERED: DOXYCYCLINE HY100 MG PO (00:57)
[2024-11-14] MEDS: DOXYCYCLINE HYCLATE TABLET 100 MG TAB PO ONE (01:04)
[2024-11-14] MEDS: HYDROCODONE/APAP 5MG-325MG TAB PO ONE (01:04)
[2024-11-14] MEDS: Clindamycin INJ 150 MG/ML 600 MG Vial IM ONE (01:04)
[2024-11-14] MEDS: IBUPROFEN 200 MG TAB PO ONE (01:05)
[2024-11-14] MEDS: ONDANSETRON HCL 4 MG ORAL DISINTEGRATING TAB PO ONE (01:06)
[2024-11-14 01:40] VITALS: BP 132/66; PULSE 84; RESP 18; TEMP 98.6; O2SAT 96
== END 2024-11-14 01:40 | disposition home or self-care (01) ==
LOC: FSED 23:51
DX: T81.40XA Infection following a procedure, unspecified, initial encounter (principal); M96.89 Other intraoperative and postprocedural complications and disorders of the musculoskeletal system; G90.59 Complex regional pain syndrome I of other specified site; G89.18 Other acute postprocedural pain; I10 Essential (primary) hypertension; E11.9 Type 2 diabetes mellitus without complications; J44.9 Chronic obstructive pulmonary disease, unspecified; E78.5 Hyperlipidemia, unspecified; J45.909 Unspecified asthma, uncomplicated; K21.9 Gastro-esophageal reflux disease without esophagitis
CPT/HCPCS: 96372; 99283; Q0162

== ENCOUNTER 2024-12-09 12:41 | Emergency (ER) | payer MEDICARE ==
[~2024-12-09] VITALS: Ht 160 cm; Wt 78.6 kg
[~2024-12-09 12:41] MED LIST changes: +PROBIOTIC & AC1 EACH PO
[2024-12-09] MEDS: BACITRACIN ZINC 0.9GM TP ONE (13:33)
[2024-12-09] MEDS ORDERED: CLEOCIN HCL150 MG PO (13:40)
[2024-12-09 13:55] VITALS: PULSE 80; RESP 18; TEMP 98.4
[2024-12-09 13:56] VITALS: BP 127/63; PULSE 80; RESP 18; O2SAT 96
== END 2024-12-09 13:55 | disposition home or self-care (01) ==
LOC: FSED 12:50
DX: T81.49XD Infection following a procedure, other surgical site, subsequent encounter (principal); T81.30XA Disruption of wound, unspecified, initial encounter; I10 Essential (primary) hypertension; E11.9 Type 2 diabetes mellitus without complications; J44.9 Chronic obstructive pulmonary disease, unspecified; E78.5 Hyperlipidemia, unspecified; J45.909 Unspecified asthma, uncomplicated; K21.9 Gastro-esophageal reflux disease without esophagitis; G90.511 Complex regional pain syndrome I of right upper limb; F41.9 Anxiety disorder, unspecified; F32.A Depression, unspecified; M54.9 Dorsalgia, unspecified; F17.210 Nicotine dependence, cigarettes, uncomplicated
CPT/HCPCS: 99283

== ENCOUNTER 2025-01-02 09:30 | Emergency (ER) | payer MEDICARE ==
[~2025-01-02] VITALS: Ht 160 cm; Wt 78.3 kg
[~2025-01-02 09:30] MED LIST changes: +CLEOCIN HCL150 MG PO
[2025-01-02 09:35] VITALS: PULSE 88; RESP 18; TEMP 97.6; O2SAT 94
== END 2025-01-02 10:40 | disposition home or self-care (01) ==
LOC: FSED 09:43
DX: Z48.01 Encounter for change or removal of surgical wound dressing (principal); S90.122A Contusion of left lesser toe(s) without damage to nail, initial encounter; X58.XXXA Exposure to other specified factors, initial encounter; Y92.89 Other specified places as the place of occurrence of the external cause; I10 Essential (primary) hypertension; E11.9 Type 2 diabetes mellitus without complications; J44.9 Chronic obstructive pulmonary disease, unspecified; E78.5 Hyperlipidemia, unspecified; J45.909 Unspecified asthma, uncomplicated; K21.9 Gastro-esophageal reflux disease without esophagitis; G90.59 Complex regional pain syndrome I of other specified site; M54.9 Dorsalgia, unspecified; F41.9 Anxiety disorder, unspecified; F32.A Depression, unspecified
CPT/HCPCS: 99283